=== PATIENT | male | born 1950 | race Caucasian/White ===

== ENCOUNTER 2016-08-11 23:36 | Emergency (ER) | payer OTHER ==
[~2016-08-11] VITALS: Ht 167.6 cm; Wt 70.5 kg
[~2016-08-11 23:36] MED LIST: AMLO-218 PO; CALC0.2511 PO; ERGO500014 PO; FER325 PO; LANT3I SC; METO-448 PO; PRA40 PO
[2016-08-11 23:40] VITALS: Ht 167.6 cm; Wt 70.5 kg
[2016-08-11] MEDS ORDERED: SOD CHLORIDE 0.9% 500 ML IV STA (23:41)
[2016-08-12 00:57] LABS: ADD SCAN DIFF NO
[2016-08-12 00:58] LABS: BASOPHIL # 0.1 10^3/ul (0.0-0.1); BASOPHILS % 0.5 % (0.0-2.0); EOSINOPHILS % 0.2 % (0.0-7.0); HEMATOCRIT 31.6 % (42.0-52.0); HEMOGLOBIN 10.5 g/dl (14.0-18.0); LYMPHOCYTES # 1.4 10^3/ul (0.8-2.9); MEAN CORPUSCULAR HEMOGLOBIN 33.8 pg (29.0-33.0); MEAN CORPUSCULAR HGB CONC 33.2 g/dl (32.0-37.0); MEAN CORPUSCULAR VOLUME 101.6 fl (82.0-101.0); MEAN PLATELET VOLUME 10.1 fl (7.4-10.4); MONOCYTE # 0.3 10^3/ul (0.3-0.9); NEUTROPHIL # 9.5 10^3/ul (1.6-7.5); NEUTROPHILS % 83.7 % (39.0-77.0); PLATELET COUNT 196 10^3/UL (140-415); RED BLOOD COUNT 3.11 10^6/ul (4.70-6.10); RED CELL DISTRIBUTION WIDTH 13.2 % (11.5-14.5); WHITE BLOOD COUNT 11.3 10^3/ul (4.8-10.8)
[2016-08-12 01:18] LABS: ALBUMIN 4.7 g/dl (3.3-4.9); CHLORIDE 94 mmol/L (97-110)
[2016-08-12 01:19] LABS: SODIUM 134 mmol/L (135-144)
[2016-08-12 01:21] LABS: AMMONIA < 9 umol/l (9-30); ANION GAP 31 (8-16); BILIRUBIN,INDIRECT 0.2 mg/dl (0-1.1); BILIRUBIN,TOTAL 0.2 mg/dl (0.2-1.3); CARBON DIOXIDE 13 mmol/L (21-31); CREATININE 8.73 mg/dl (0.61-1.24)
[2016-08-12 01:22] LABS: ALANINE AMINOTRANSFERASE 24 IU/L (13-69); ALBUMIN/GLOBULIN RATIO 1.56; ALKALINE PHOSPHATASE 76 IU/L (42-121); ASPARTATE AMINO TRANSFERASE 30 IU/L (15-46); BLOOD UREA NITROGEN 47 mg/dl (7-20); CALCIUM 9.3 mg/dl (8.4-10.2); GLUCOSE 241 mg/dl (70-220); TOTAL PROTEIN 7.7 g/dl (6.1-8.1)
[2016-08-12 01:23] LABS: ACETAMINOPHEN < 10.0 ug/ml (10.0-30.0); LACTIC ACID 8.4 mmol/L (0.5-2.2); SALICYLATE < 1.0 mg/dl (5.0-30.0)
[2016-08-12 01:35] LABS: TROPONIN-I 0.013 ng/ml (0.00-0.12)
[2016-08-12 01:57] LABS: ADD UMIC YES; URINE BILIRUBIN (Dip) NEGATIVE (NEGATIVE); URINE BLOOD (Dip) 1+ (NEGATIVE); URINE COLOR LT. YELLOW (YELLOW); URINE GLUCOSE (Dip) NEGATIVE (NEGATIVE); URINE KETONES (Dip) NEGATIVE (NEGATIVE); URINE LEUKOCYTE ESTERASE (Dip) NEGATIVE (NEGATIVE); URINE NITRITE (Dip) NEGATIVE (NEGATIVE); URINE TOTAL PROTEIN (Dip) 2+ (NEGATIVE); URINE UROBILINOGEN (Dip) 0.2 E.U./dL (0.1-1.0)
[2016-08-12] MEDS ORDERED: INSULIN HUMAN REGULAR 100 UNIT in SOD CHLORIDE 0.9% 99 ML IV STA ×2 (02:16→04:26)
[2016-08-12] MEDS ORDERED: SOD CHLORIDE 0.9% 2,000 ML IV STA (02:16)
[2016-08-12] MEDS ORDERED: CEFEPIME 2GM/50 ML (PMX) 50 ML IVPB STA (02:17)
--- NOTE | 2016-08-12 02:24 | RADRPT ---
PROCEDURE: XR Chest. CLINICAL INDICATION: Altered level of consciousness. TECHNIQUE: Single frontal chest x-ray. COMPARISON: 10/14/2014 FINDINGS: The cardiomediastinal silhouette is unremarkable. There is no congestive heart failure.. No focal i nfiltrate is seen. There is no pleural effusion. There is no pneumothorax. The osseous structures are unremarkable. IMPRESSION: 1. No active disease. RPTAT: [facility]K .Johnnie Gibson MD, MD Date Time Electronically viewed and signed by .Johnnie Gibson MD, on 08/12/2016 02:24 .K/
--- NOTE | 2016-08-12 02:28 | RADRPT ---
PROCEDURE: CT Brain without contrast. CLINICAL INDICATION: Altered level of consciousness. TECHNIQUE: A CT of the brain was performed on a multislice detector CT scanner utilizing axial sec tions from the skull base through the vertex without contrast. Images were reviewed on a high-resolu [employer] PACS workstation. Exam CTDlvol = 45 mGy and DLP = 720 mGy-cm. One of the following 3 dose red uction techniques were used: Automated exposure control; adjustment of the mA and/or kV according to patient size; or use of iterative reconstruction technique. COMPARISON: 10/14/2014 FINDINGS: There is age appropriate central and peripheral atrophy. There is no midline shift. There is a mod erate degree of supratentorial periventricular and subcortical white matter hypodensities. There is no definite acute stroke. There is no mass lesion. There is no intracranial hemorrhage or abnorma l extra-axial fluid collection. Visualized paranasal sinuses are clear. There are old fracture of t he medial wall of the right orbit and nasal bones. IMPRESSION: 1. No acute intracranial abnormality. 2. Nonspecific white matter changes most commonly seen with microvascular ischemic disease. 3. Old fracture of the medial wall right orbit and nasal bones. RPTAT: HMVK .Johnnie Gibson MD, Date Time Electronically viewed and signed by .Johnnie Gibson MD, on 08/12/2016 02:27 .K/
[2016-08-12] MEDS ORDERED: VANCOMYCIN 1 GM (PMX) 250 ML IVPB ONE (02:30)
[2016-08-12 03:30] VITALS: BP 152/78; PULSE 99; RESP 16; TEMP 97.2
[2016-08-12 03:54] LABS: BARBITURATES NEGATIVE (NEGATIVE); BENZODIAZEPINES NEGATIVE (NEGATIVE); CANNABINOIDS NEGATIVE (NEGATIVE); COCAINE NEGATIVE (NEGATIVE); OPIATES NEGATIVE (NEGATIVE)
--- NOTE | 2016-08-12 04:00 | ERA ---
ER Documentation Chief Complaint Date/Time DATE: 08/12/16 TIME: 03:57 Chief Complaint BIBA RA102,BS 31 per EMS,EMS gave D10 250 ml & oral glucose,rib pain HPI This is a 65-year-old male brought in by rescue comes in with acute alteration in mental status is resolved after D50 administration. Blood sugar was 31 and the feeling was given D50. Upon arrival patient is still lethargic but arousable. History of diabetes mellitus. Admits to drinking alcohol today as well. ROS All systems reviewed and are negative except as per history of present illness. Medications Home Meds Active Scripts Insulin Glargine* (Lantus*) 100 Unit/Ml Soln, 10 UNIT SC DAILY for 30 Days, EA Prov:FEDE RAMIRES [employer] 10/17/14 Reported Medications Amlodipine Besylate* (Norvasc*) 10 Mg Tablet, 10 MG PO DAILY, TAB 10/14/14 Calcitriol* (Calcitriol*) 0.25 Mcg Capsule, 0.25 MCG PO DAILY, CAP 10/14/14 Discontinued Reported Medications Ferrous Sulfate* (Ferrous Sulfate*) 325 Mg Tabec, 325 MG PO BID, TAB 10/14/14 Pravastatin Sodium* (Pravachol*) 40 Mg Tablet, 40 MG PO HS, TAB 10/14/14 Ergocalciferol* (Drisdol* (Vitamin D2)) 50,000 Unit Capsule, 14381 UNIT PO Q7D, CAP 10/14/14 Discontinued Scripts Metoprolol Tartrate* (Lopressor*) 25 Mg Tab, 12.5 MG PO BID for 15 Days, TAB HOLD FOR SBP<110 AND/OR HR<60 Prov:FEDE RAMIRES [employer] 10/17/14 Allergies Allergies: Coded Allergies: No Known Drug Allergies (Unverified Allergy, Unknown, 08/12/16) PMhx/Soc History of Surgery: Yes (L TMA) Anesthesia Reaction: No Hx Neurological Disorder: No Hx Respiratory Disorders: No Hx Cardiac Disorders: Yes (HTN) Hx Psychiatric Problems: No Hx Miscellaneous Medical Probl: Yes (DM; hyperlipidemia; pancreatitis, ACUTE RENAL FAILURE) Hx Alcohol Use: Yes Hx Substance Use: No Hx Tobacco Use: Yes Smoking Status: Unknown if ever smoked Physical Exam Vitals Vital Signs Date Time Temp Pulse Resp B/P Pulse Ox O2 Delivery O2 Flow Rate FiO2 08/12/16 02:00 99 18 169/110 100 Room Air 08/12/16 00:53 Nasal Cannula 2 08/11/16 23:40 97.2 78 18 143/70 100 Physical Exam Const: [] Head: Atraumatic Eyes: Normal Conjunctiva ENT: Normal External Ears, Nose and Mouth. Neck: Full range of motion..~ No meningismus. Resp: Clear to auscultation bilaterally Cardio: Regular rate and rhythm, no murmurs Abd: Soft, non tender, non distended. Normal bowel sounds Skin: No petechiae or rashes Back: No midline or flank tenderness Ext: No cyanosis, or edema Neur: Awake and alert Psych: Normal Mood and Affect Result Diagram: 08/12/168 08/12/167 Results 24 hrs Laboratory Tests Test 08/11/16 23:40 08/12/16 00:08 08/12/16 01:35 08/12/16 01:36 Bedside Glucose 161mg/dL White Blood Count 11.310^3/ul Red Blood Count 3.1110^6/ul Hemoglobin 10.5g/dl Hematocrit 31.6% Mean Corpuscular Volume 101.6fl Mean Corpuscular Hemoglobin 33.8pg Mean Corpuscular Hemoglobin Concent 33.2g/dl Red Cell Distribution Width 13.2% Platelet Count 51731^3/UL Mean Platelet Volume 10.1fl Neutrophils % 83.7% Lymphocytes % 12.0% Monocytes % 3.0% Eosinophils % 0.2% Basophils % 0.5% Nucleated Red Blood Cells % 0.0/100WBC Neutrophils # 9.510^3/ul Lymphocytes # 1.410^3/ul Monocytes # 0.310^3/ul Eosinophils # 0.010^3/ul Basophils # 0.110^3/ul Nucleated Red Blood Cells # 0.010^3/ul Sodium Level 134mmol/L Potassium Level 4.0mmol/L Chloride Level 94mmol/L Carbon Dioxide Level 13mmol/L Anion Gap 31 Blood Urea Nitrogen 47mg/dl Creatinine 8.73mg/dl Glucose Level 241mg/dl Lactic Acid Level 8.4mmol/L Calcium Level 9.3mg/dl Total Bilirubin 0.2mg/dl Direct Bilirubin 0.00mg/dl Indirect Bilirubin 0.2mg/dl Aspartate Amino Transf (AST/SGOT) 30IU/L Alanine Aminotransferase (ALT/SGPT) 24IU/L Alkaline Phosphatase 76IU/L Ammonia < 9umol/l Troponin I 0.013ng/ml Total Protein 7.7g/dl Albumin 4.7g/dl Globulin 3.00g/dl Albumin/Globulin Ratio 1.56 Salicylates Level < 1.0mg/dl Acetaminophen Level < 10.0ug/ml Ethyl Alcohol Level 46.0mg/dl Urine Color LT. YELLOW Urine Clarity SLIGHTLY CLOUDY Urine pH 6.0 Urine Specific [place] 1.010 Urine Ketones NEGATIVE Urine Nitrite NEGATIVE Urine Bilirubin NEGATIVE Urine Urobilinogen 0.2 E.U./dL Urine Leukocyte Esterase NEGATIVE Urine Microscopic RBC 10-25/HPF Urine Microscopic WBC NONE SEEN/HPF Urine Amorphous Urates MODERATE Urine Hemoglobin 1+ Urine Glucose NEGATIVE% Urine Total Protein 2+ Urine Opiates Screen NEGATIVE Urine Barbiturates NEGATIVE Urine Amphetamines Screen NEGATIVE Urine Benzodiazepines Screen NEGATIVE Urine Cocaine Screen NEGATIVE Urine Cannabinoids NEGATIVE Test 08/12/16 02:46 08/12/16 02:54 Lactic Acid Level 5.1mmol/L Bedside Glucose 230mg/dL Current Medications Medications (Trade) Dose Ordered Sig/[place] Route PRN Reason Start Time Stop Time Status Last Admin Dose Admin Sodium Chloride 500 ml @ 500 mls/hr Q1H STAT IV 08/11/16 23:41 08/12/16 00:40 DC 08/12/16 00:34 Sodium Chloride 2,000 ml @ 1,000 mls/hr Q2H STAT IV 08/12/16 02:16 08/12/16 04:15 08/12/16 02:51 Insulin Human Regular 100 unit/ Sodium Chloride 100 ml @ 0 mls/hr TITRATE STAT IV 08/12/16 02:16 08/12/16 02:23 DC 08/12/16 03:53 Cefepime HCl 50 ml @ 100 mls/hr ONCE STAT IVPB 08/12/16 02:17 08/12/16 02:46 DC 08/12/16 02:51 Vancomycin HCl (Vancocin) 250 ml @ 125 mls/hr ONCE ONCE IVPB 08/12/16 02:30 08/12/16 04:29 08/12/16 03:31 Procedures/MDM EKG: Rate/Rhythm: Normal Sinus Rhythm QRS, ST, T-waves: No changes consistent w/ acute ischemia Impression: No evidence of ischemia or arrhythmia Chest X-ray 1V Interpreted by me: Soft Tissue: No acute abnormalities Bones: No acute abnormalities Mediastinum/Cardiac Silhouette/Lungs: No acute abnormalities Lactic acid was 8.3, however this likely secondary to ketoacidotic process. Cultures were drawn and sent off and landed antibiotics were started. Medical decision makin-year-old male is ketoacidosis likely combination of DKA and alcohol ketoacidosis. Patient is on insulin drip and fluids. At this point patient clinically stable lysed. Patient will be transferred to [place]. Critical Care: Time: 45 minutes Treatments/Evaluations: Close monitoring and treatment of unstable vital signs, cardiorespiratory, and neurologic status, while maintaining tight balance of fluid, respiratory, and cardiac interventions. Departure Diagnosis: Primary Impression: Alcoholic ketoacidosis Additional Impressions: Metabolic acidosis Lactic acidosis Condition: Critical YADIRA DUEÑAS August 12, 2016 04:00
[2016-08-12] MEDS ORDERED: DEXTROSE 50% 50 ML SYRINGE IV PRN ×2 (04:30)
[2016-08-12] MEDS ORDERED: ACCU-CHEK XX SCH (04:30)
[2016-08-12] MEDS ORDERED: LACTATED RINGER'S 1,000 ML IV SCH (05:26)
[2016-08-12] MEDS ORDERED: POTASSIUM CHLORIDE 40 MEQ in SOD CHLORIDE 0.9% 1,000 ML IV SCH (06:26)
[2016-08-13 15:10] LABS: MICROALBUMIN 49.6 mg/dL
== END 2016-08-12 05:00 | disposition short-term general hospital (02) ==
LOC: E/R 23:36
DX: E87.2 Acidosis (principal); I10 Essential (primary) hypertension; E11.9 Type 2 diabetes mellitus without complications; R40.4 Transient alteration of awareness; Z79.4 Long term (current) use of insulin; Z87.891 Personal history of nicotine dependence
CPT/HCPCS: 36415; 70450; 71010; 80053; 80306; 80307; 81001; 82043; 82140; 82962; 83605; 84484; 85025; 87086; 93005; 96374; 96375; 99291; J0692; J1815; J3370; J7030; J7040; J3480; J7120